=== PATIENT | female | born 1965 | race Caucasian/White ===

== ENCOUNTER 2023-09-01 13:28 | Emergency (ER) | payer SELFPAY ==
[2023-09-01 15:23] LABS: Actual Bicarbonate (HCO3v) 28.5 mEq/L (22-28); Analyzer IN Cardio CS ER; Calcium, Ionized (venous) 1.15 mmol/L (1.16-1.32); Chloride (VBG) 103 mmol/L (98-106); Hematocrit-VBG 46 % (36.0-47.0); Hemoglobin (Hb) 15.7 g/dL (11.7-16.0); Potassium (VBG) 4.01 mmol/L (3.70-5.30); Puncture Site Other Site; RapidComm Collect By LAB; Sodium 143 mmol/L (133-146); pH (venous) 7.407 (7.32-7.43)
[2023-09-01 15:44] LABS: #Basophils 0.1 10x3/uL (0.0-0.2); #Eosinphils 0.2 10x3/uL (0.0-0.5); #Monocytes 0.5 10x3/uL (0.0-1.1); #Neutrophils 3.1 10x3/uL (1.5-8.4); %Basophils 1.4 % (0.0-2.0); %Eosinophils 3.1 % (0.0-6.0); %Lymphocytes 33.6 % (18.0-47.0); %Monocytes 9.1 % (0.0-10.0); %Neutrophils 52.5 % (40.0-75.0); Hematocrit 42.7 % (34.9-44.5); Hemoglobin 14.9 g/dL (12.0-15.5); Mean Corpuscular HGB CONC 34.9 g/dL (32.0-36.0); Mean Corpuscular Hemoglobin 32.2 pg (27.0-33.0); Mean Corpuscular Volume 92.2 fl (81.6-98.3); Platelet Count 284 10x3/uL (150-450); Red Blood Cell (RBC) Count 4.63 10x6/uL (3.90-5.03); White Blood Cell (WBC) Count 5.8 10x3/uL (3.5-10.5)
[2023-09-01 15:58] LABS: ALT (SGPT) 14 U/L (8-55); AST (SGOT) 26 U/L (5-34); Albumin 4.4 g/dL (3.5-5.0); Alkaline Phosphatase 87 U/L (40-110); Anion Gap 16 mmol/L (10-20); BUN (Urea Nitrogen) 8 mg/dL (9.8-20.1); Bilirubin, Total 0.6 mg/dL (0.2-1.2); Calc. Creatinine Clearance 0 mL/min (70-130); Calcium 9.9 mg/dL (7.8-10.44); Carbon Dioxide 24 mmol/L (22-29); Chloride 104 mmol/L (98-107); Estimated GFR 84; Globulin 2.9 g/dL (2.4-3.5); Glucose 73 mg/dL (70-105); Potassium 4.1 mmol/L (3.5-5.1); Protein, Total 7.3 g/dL (6.0-8.3); Sodium 140 mmol/L (136-145)
[2023-09-01 16:04] LABS: Troponin I Less than 0.010 ng/mL (< 0.028)
== END 2023-09-01 18:50 | disposition home or self-care (01) ==
LOC: CSHERS 13:28
DX: R20.2 Paresthesia of skin (principal); R91.1 Solitary pulmonary nodule; J43.9 Emphysema, unspecified; I11.0 Hypertensive heart disease with heart failure; I50.9 Heart failure, unspecified; Z87.891 Personal history of nicotine dependence
CPT/HCPCS: 36415; 71045; 80053; 82805; 83880; 84484; 85025; 93005